=== PATIENT | male | born 1975 | race Caucasian/White ===

== ENCOUNTER 2016-09-19 13:21 | Inpatient (IN) | payer SELFPAY ==
[2016-09-19 14:02] VITALS: BMI 23.6
[2016-09-19 14:23] LABS: AUTOMATED BASOPHIL 0.5 % (0-2); AUTOMATED EOSINOPHIL 0.4 % (0-5); AUTOMATED LYMPH 9.3 % (17-44); AUTOMATED MONOCYTE 7.9 % (3-10); AUTOMATED NEUTROPHIL 81.9 % (45-76)
[2016-09-19 14:30] LABS: LEUKOCYTES/URINE NEG (NEGATIVE); NITRITE/URINE NEG (NEGATIVE); URINE OCCULT BLOOD NEG (NEG/TRACE)
[2016-09-19 14:32] LABS: RBC/URINE 0-2 (0-2); WBC/URINE 0-2 (0-2)
[2016-09-19] MEDS ORDERED: HYDROmorphone 1 MG INJECTION IV ONE (14:33)
[2016-09-19] MEDS ORDERED: ONDANSETRON HCL 4 MG/2 ML VIAL IV ONE (14:33)
[2016-09-19 14:46] LABS: BLOOD UREA NITROGEN 13 MG/DL (9-20); CALCIUM 9.2 MG/DL (8.4-10.2); CALCULATED OSMOLALITY 276 MOs/Kg (270-290); CHLORIDE 94 mEq/L (98-107); GLUCOSE 391 MG/DL (70-99); SODIUM LEVEL 135 mEq/L (137-146)
[2016-09-19] MEDS ORDERED: NS 1,000 ML IV ONE (14:46)
[2016-09-19 14:47] LABS: ABG Draw Site LRA; ALLEN'S TEST PASS; BEb -1.3 (+/- 2); TCO2 23.8 MMOL/L (23-27)
[2016-09-19] MEDS ORDERED: Pharmacy Review for Metformin - IV Contrast Given SCH (15:00)
--- NOTE | 2016-09-19 15:10 | EDPRACDOC ---
- General Information Information Source: Patient Mode Of Arrival: Car - History of Present Illness Onset: THIS AM Pain Location: Reports: RUQ Pain Context: Reports: Spontaneous Pain Severity: Severe Pain Quality: Reports: Sharp, Stabbing Pain Radiation: Reports: No Radiation Modifying Factors: improves with: Nothing Associated Signs & Symptoms: Reports: Nausea <Medina Mcwilliams - Last Filed: 09/19/16 17:09> <Lashae Leung - Last Filed: 09/19/16 18:39> - General Information Chief Complaint: Abdominal Pain Stated Complaint: ABDOMINAL PAIN Time Seen by Provider: 09/19/16 14:21 Home Medications: Home Medications No Home Medications 09/19/16 Allergies/Adverse Reactions: Allergies Allergy/AdvReac Type Severity Reaction Status Date / Time No Known Allergies Allergy Verified 09/19/16 14:03 - History of Present Illness HPI: PT PRESENTS TODAY WITH SEVERE RUQ PAIN THAT BEGAN THIS MORNING. PT IS UNCONTROLLED DIABETIC AND HAS BEEN OUT OF HIS MEDICATIONS FOR 5 MONTHS D/T FINANCES. USUALLY TAKES INSULIN/METFORMIN. PT STATES ASSOCIATED SEVERE NAUSEA , WITH CP AND SHOB. DENIES FEVER, COUGH, VOMITING/DIARRHEA, DYSURIA. PT IN APPARENT DISCOMFORT. (Medina Mcwilliams) ED Past Medical History - History Reviewed Yes Nurses notes reviewed and agree except as marked - Patient Medical History Psychological History: Denies: Depression - Family Medical History Reports: Diabetes (Mother) - Social Medical History Smoking Status: Never smoker <Medina Mcwilliams - Last Filed: 09/19/16 17:09> EDM Review of Systems - Review of Systems ROS Negative Except as Marked: Yes All systems reviewed and were negative except as marked Constitutional: No Symptoms Reported Respiratory: Shortness of Breath Cardiovascular: Chest Pain Gastrointestinal: Nausea, Pain Genitourinary: No Symptoms Reported Neurological: No Symptoms Reported Musculoskeletal: No Symptoms Reported Integumentary: No Symptoms Reported <Medina Mcwilliams - Last Filed: 09/19/16 17:09> - Physical Exam Constitutional: Alert, Distress Oriented to: Time, Person, Place - HEENT Head: Normal Eye Exam: Normal Neck: Normal, Denies Pain, Midline - Respiratory/Cardiovascular Respiratory: Normal - CTA Cardiovascular: Normal - GI Auscultation: Increased Palpation: Normal Tenderness: Severe, RUQ Ramirez's Sign: Positive - Musculoskeletal Back: Normal Extremities: Normal - Integumentary Skin: Warm, Clammy Lymphatics: Normal - Neurologic Cerebellar: Normal Mood Description: Normal Thought: Coherent Perception: Normal <PoppyMedina Perez - Last Filed: 09/19/16 17:09> - Re-evaluation Re-evaluation 1 Re-evaluation Time: 16:02 - Results 09/19/16 14:09 09/19/16 14:09 - EKG EKG #1 EKG Time: 15:26 -: Yes EKG interpreted by me Rate: bpm: 61 [place]: Normal Rhythm: NSR Block: None Hypertrophy: None ST: Normal <PoppyMedina Perez - Last Filed: 09/19/16 17:09> - Results 09/19/16 14:09 09/19/16 14:09 <Lashae Leung - Last Filed: 09/19/16 18:39> - Re-evaluation Re-evaluation 1 PT STATES HE IS FEELING BETTER. PT DOES ADMIT TO DRINKING ALCOHOL HEAVILY. ( Medina Mcwilliams) - Results WBC 7.8 xk/uL (3.8-10.8) 09/19/16 14:09 RBC 4.39 xM/uL (4.70-6.10) L 09/19/16 14:09 Hgb 14.1 g/dL (14.0-18.0) 09/19/16 14:09 Hct 40.8 % (42-52) L 09/19/16 14:09 MCV 93 fL (80-94) 09/19/16 14:09 MCH 32.2 pg (27-32) H 09/19/16 14:09 MCHC 34.5 g/dl (33-36) 09/19/16 14:09 RDW 13.1 % (11.5-14.5) 09/19/16 14:09 Plt Count 176 xk/uL (130-400) 09/19/16 14:09 MPV 7.0 fL (7.4-10.4) L 09/19/16 14:09 Neut % (Auto) 81.9 % (45-76) H 09/19/16 14:09 Lymph % (Auto) 9.3 % (17-44) L 09/19/16 14:09 [place] % (Auto) 7.9 % (3-10) 09/19/16 14:09 Eos % (Auto) 0.4 % (0-5) 09/19/16 14:09 Baso % (Auto) 0.5 % (0-2) 09/19/16 14:09 Absolute Neuts (auto) 6.32 xk/uL (1.7-8.2) 09/19/16 14:09 Absolute Lymphs (auto) 0.70 xk/uL (0.65-4.75) 09/19/16 14:09 Puncture Site Lra 09/19/16 14:45 pH 7.420 pH UNITS (7.35-7.45) 09/19/16 14:45 pCO2 35.0 mmHg (35-45) 09/19/16 14:45 pO2 87.0 mmHg (80-100) 09/19/16 14:45 HCO3 22.7 MMOL/L (22-26) 09/19/16 14:45 Total CO2 23.8 MMOL/L (23-27) 09/19/16 14:45 Base Excess -1.3 (+/- 2) 09/19/16 14:45 FiO2 % 21 09/19/16 14:45 Specimen Drawn By Dared 09/19/16 14:45 Sodium 135 mEq/L (137-146) L 09/19/16 14:09 Potassium 4.0 mEq/L (3.5-5.1) 09/19/16 14:09 Chloride 94 mEq/L (98-107) L 09/19/16 14:09 Carbon Dioxide 23 mMOL/L (22-33) 09/19/16 14:09 Anion Gap 22 mEq/L (8-16) H 09/19/16 14:09 BUN 13 MG/DL (9-20) 09/19/16 14:09 Creatinine 0.60 MG/DL (0.66-1.25) L 09/19/16 14:09 Estimated GFR (MDRD) > 60 mL/min (>=60) 09/19/16 14:09 Glucose 391 MG/DL (70-99) H 09/19/16 14:09 POC Capillary Glucose 385 MG/DL (70-99) H 09/19/16 14:09 Calculated Osmolality 276 MOs/Kg (270-290) 09/19/16 14:09 Calcium 9.2 MG/DL (8.4-10.2) 09/19/16 14:09 Total Bilirubin 0.7 MG/DL (0.2-1.3) 09/19/16 14:09 AST 27 IU/L (17-59) 09/19/16 14:09 ALT 30 IU/L (21-72) 09/19/16 14:09 Alkaline Phosphatase 231 IU/L (38-126) H 09/19/16 14:09 Lactate Dehydrogenase 468 IU/L (313-618) 09/19/16 14:09 Troponin I < 0.01 ng/mL (<.04) 09/19/16 14:09 Total Protein 8.0 G/DL (6.3-8.2) 09/19/16 14:09 Albumin 4.7 G/DL (3.5-5.0) 09/19/16 14:09 Lipase 87996 U/L (23-300) H 09/19/16 14:09 Urine Color Pale yell0w 09/19/16 14:09 Urine Clarity Clear 09/19/16 14:09 Urine pH 6.0 (5.0-8.0) 09/19/16 14:09 Ur Specific [place] 1.005 09/19/16 14:09 Urine Protein Neg (NEG/TRACE) 09/19/16 14:09 Urine Glucose (UA) 3+ (NEGATIVE) 09/19/16 14:09 Urine Ketones 1+ (NEGATIVE) H 09/19/16 14:09 Urine Occult Blood Neg (NEG/TRACE) 09/19/16 14:09 Urine Nitrite Neg (NEGATIVE) 09/19/16 14:09 Urine Bilirubin Neg (NEGATIVE) 09/19/16 14:09 Urine Urobilinogen 0.2 MG/DL (0-1) 09/19/16 14:09 Ur Leukocyte Esterase Neg (NEGATIVE) 09/19/16 14:09 Urine RBC 0-2 (0-2) 09/19/16 14:09 Urine WBC 0-2 (0-2) 09/19/16 14:09 Urine Bacteria Few (NEG/FEW) 09/19/16 14:09 Urine Mucus Occ (NEG/OCC) 09/19/16 14:09 Lab Results 09/19/16 09/19/16 09/19/16 14:45 14:09 14:09 WBC RBC Hgb Hct MCV MCH MCHC RDW Plt Count MPV Neut % (Auto) Lymph % (Auto) [place] % (Auto) Eos % (Auto) Baso % (Auto) Absolute Neuts (auto) Absolute Lymphs (auto) Puncture Site Lra pH 7.420 pCO2 35.0 pO2 87.0 HCO3 22.7 Total CO2 23.8 Base Excess -1.3 FiO2 % 21 Specimen Drawn By Dared Sodium Potassium Chloride Carbon Dioxide Anion Gap BUN Creatinine Estimated GFR (MDRD) Glucose POC Capillary Glucose Calculated Osmolality Calcium Total Bilirubin AST ALT Alkaline Phosphatase Lactate Dehydrogenase 468 Troponin I < 0.01 Total Protein Albumin Lipase Urine Color Urine Clarity Urine pH Ur Specific [place] Urine Protein Urine Glucose (UA) Urine Ketones Urine Occult Blood Urine Nitrite Urine Bilirubin Urine Urobilinogen Ur Leukocyte Esterase Urine RBC Urine WBC Urine Bacteria Urine Mucus 09/19/16 09/19/16 09/19/16 14:09 14:09 14:09 WBC RBC Hgb Hct MCV MCH MCHC RDW Plt Count MPV Neut % (Auto) Lymph % (Auto) [place] % (Auto) Eos % (Auto) Baso % (Auto) Absolute Neuts (auto) Absolute Lymphs (auto) Puncture Site pH pCO2 pO2 HCO3 Total CO2 Base Excess FiO2 % Specimen Drawn By Sodium Potassium Chloride Carbon Dioxide Anion Gap BUN Creatinine Estimated GFR (MDRD) Glucose POC Capillary Glucose 385 H Calculated Osmolality Calcium Total Bilirubin AST ALT Alkaline Phosphatase Lactate Dehydrogenase Troponin I Total Protein Albumin Lipase 29041 H Urine Color Pale yell0w Urine Clarity Clear Urine pH 6.0 Ur Specific [place] 1.005 Urine Protein Neg Urine Glucose (UA) 3+ Urine Ketones 1+ H Urine Occult Blood Neg Urine Nitrite Neg Urine Bilirubin Neg Urine Urobilinogen 0.2 Ur Leukocyte Esterase Neg Urine RBC 0-2 Urine WBC 0-2 Urine Bacteria Few Urine Mucus Occ 09/19/16 09/19/16 14:09 14:09 WBC 7.8 RBC 4.39 L Hgb 14.1 Hct 40.8 L MCV 93 MCH 32.2 H MCHC 34.5 RDW 13.1 Plt Count 176 MPV 7.0 L Neut % (Auto) 81.9 H Lymph % (Auto) 9.3 L [place] % (Auto) 7.9 Eos % (Auto) 0.4 Baso % (Auto) 0.5 Absolute Neuts (auto) 6.32 Absolute Lymphs (auto) 0.70 Puncture Site pH pCO2 pO2 HCO3 Total CO2 Base Excess FiO2 % Specimen Drawn By Sodium 135 L Potassium 4.0 Chloride 94 L Carbon Dioxide 23 Anion Gap 22 H BUN 13 Creatinine 0.60 L Estimated GFR (MDRD) > 60 Glucose 391 H POC Capillary Glucose Calculated Osmolality 276 Calcium 9.2 Total Bilirubin 0.7 AST 27 ALT 30 Alkaline Phosphatase 231 H Lactate Dehydrogenase Troponin I Total Protein 8.0 Albumin 4.7 Lipase Urine Color Urine Clarity Urine pH Ur Specific [place] Urine Protein Urine Glucose (UA) Urine Ketones Urine Occult Blood Urine Nitrite Urine Bilirubin Urine Urobilinogen Ur Leukocyte Esterase Urine RBC Urine WBC Urine Bacteria Urine Mucus (Medina Mcwilliams) (Lashae Leung) - Departure Disposition: Admit IP To This Hospital Decision to Admit Time: 16:52 Decision to admit date: 09/19/16 Decision to admit: from ED <Medina Mcwilliams - Last Filed: 09/19/16 17:09> - Departure Yes I personally saw and evaluated the patient. Decision to Admit Time: 18:39 Decision to admit date: 09/19/16 Decision to admit: from ED - Physician Consulted Hospitalist Time Called: 18:38 Provider Called: Manolo Manzo Time Sock Liner Returned Call: 18:39 <Lashae Leung - Last Filed: 09/19/16 18:39> - Departure Condition: Stable Final Diagnosis: Alcohol abuse Pancreatitis Qualifiers: Chronicity: acute Pancreatitis type: alcohol induced Acute pancreatitis complication: no infection or necrosis Qualified Code(s): K85.20 - Alcohol induced acute pancreatitis without necrosis or infection Uncontrolled diabetes mellitus Qualifiers: Diabetes mellitus type: type 2 Diabetes mellitus complication status: with hyperglycemia Referrals: None,No Provider [Primary Care Provider] - One Week
--- NOTE | 2016-09-19 15:20 | DIRPT ---
CLINICAL DATA: Chest pain. EXAM: PORTABLE CHEST 1 VIEW COMPARISON: 09/04/2014 FINDINGS: Cardiomediastinal silhouette is normal. Mediastinal contours appear intact. There is no evidence of focal airspace consolidation, pleural effusion or pneumothorax. Osseous structures are without acute abnormality. Soft tissues are grossly normal. IMPRESSION: No active disease. Electronically Signed By: Nhan Shelley M.D. On: 09/19/2016 15:17
--- NOTE | 2016-09-19 15:40 | DIRPT ---
CLINICAL DATA: Right upper quadrant pain for 1 day EXAM: CT ABDOMEN AND PELVIS WITH CONTRAST TECHNIQUE: Multidetector CT imaging of the abdomen and pelvis was performed using the standard protocol following bolus administration of intravenous contrast. CONTRAST: 100 mL Isovue 370 COMPARISON: The lung bases are free of acute infiltrate or sizable effusion. The liver, gallbladder, spleen, adrenal glands and kidneys are within normal limits with the exception of a tiny hypodensity within the left lobe of the liver likely representing a cyst. The pancreas demonstrates a normal enhancement pattern without evidence of necrosis. There is however significant inflammatory change surrounding the pancreas and extending inferiorly along the inferior vena cava. These changes are most consistent with pancreatitis and correlation laboratory values is recommended. Aortoiliac calcifications are noted. The appendix is within normal limits. The bladder is distended. No filling defects are seen. No pelvic mass lesion or free pelvic fluid is noted. The osseous structures show no acute abnormality. FINDINGS: Diffuse peripancreatic fluid most consistent with pancreatitis. Correlation with laboratory values is recommended. Electronically Signed By: Dmitry Watkins M.D. On: 09/19/2016 15:37
--- NOTE | 2016-09-19 18:47 | HISTPHYS ---
- Chief Complaint pain - History of Present Illness PRIMARY CARE PROVIDER: RASHIDA HPI: The patient is a 41 yo man with uncontrolled DM who presents with abdominal pain. Onset: last night. Duration: intermittent. Location: entire upper abdomen. Radiation: to back and chest Character: 04/09. Pulling sensation. Alleviated by: Nothing. Exacerbated by: Moving. Associated Symptoms: Nausea. No vomiting but feels like he will. No diarrhea, constipation, or bloody stool. Mild chills but no fever. Occasional shortness of breath. No cough or wheezing. Headaches. Chronic decrease in sensation in his feet. Treatments: none at home except usual medications. Has restarted his Victoza and an insulin that is in a yellow case. - Medical History GI/ History: Reports: [facility] GI Yes/No Other Systemic History: Reports: Diabetes (Type 2, on insulin) Psychological History: Denies: Depression OTHER HISTORY: Visual changes 1 year ago but improved. Has an area on his scrotum (right) and inguinal canal that has had intermittent pain since a procedure that was done about 7 years ago at [facility]. States he feels like there is a 1-2 cm wire in the area. It drains fluid sometimes. Area has 2 lesions near it that are unchanged. - Surgical History Reports: Other (Procedure in scrotal area on right; patient still has lesion there and drai) - Medictions/Allergies Allergies No Known Allergies Allergy (Verified 09/19/16 14:03) Current Medication List: Reviewed Home Medications No Home Medications 09/19/16 - Family History Reports: Diabetes (Mother). Denies: Cardiac Disorders - Social History Smoking Status: Never smoker Social History: Reports: Alcohol Use. Denies: Substance Use Disorder Patient drinks 4-5 large 25 oz cans of beer per day. Started a few years ago. - Review of Systems GENERAL: Mild chills but no fever. Positive for fatigue/malaise. HEENT: No nasal discharge or bleeding. No throat pain or swelling. No eye pain or eye redness. RESPIRATORY: Occasional shortness of breath. No cough or wheezing. CARDIOVASCULAR: No palpitations. Chest pain when he gets the epigastric pain. GI: Abdominal pain. Nausea. No vomiting but feels like he will. No diarrhea, constipation, or bloody stool. NEUROLOGICAL: No headache or focal weakness. INTEGUMENT: no rashes, itching, or lesions. LYMPHATIC SYSTEM: no lymph node swelling or pain. MUSCULOSKELETAL: no new pain or joint swelling. GENITOURINARY: No dysuria or hematuria. Has an area on his scrotum (right) and inguinal canal that has had intermittent pain since a procedure that was done about 7 years ago at [facility]. States he feels like there is a 1-2 cm wire in the area. It drains fluid sometimes. Area has 2 lesions near it that are unchanged. ENDOCRINE: No polyuria or polydipsia. HEME: No chronic anemia, bleeding, or easy bruising. - Physical Exam Vital Signs: Initial Vitals Temperature 98.4 F 09/19/16 13:59 Pulse Rate 79 09/19/16 13:59 Respiratory Rate 18 09/19/16 13:59 Blood Pressure 134/90 09/19/16 13:59 Pulse Oxygen Saturation 98 09/19/16 13:59 Vital Signs - 24 hr 09/19/16 09/19/16 09/19/16 13:59 14:24 15:53 Temperature 98.4 F Pulse Rate 79 69 63 Respiratory 18 18 18 Rate Blood Pressure 134/90 142/91 124/80 Pulse Oxygen 98 100 99 Saturation 09/19/16 17:08 Temperature Pulse Rate 65 Respiratory 16 Rate Blood Pressure 110/74 Pulse Oxygen 97 Saturation Weight: 70.4 kg Height: 5 feet 8 inches BMI: 23.6 - Other Exam Other Exam Findings: GENERAL: Ill-appearing, well nourished, in acute distress. HEENT: Normocephalic, atraumatic; pupils equal and round. Nares patent, without discharge or bleeding. No oropharyngeal lesions or erythema. Mucous membranes are dry. NECK: is supple, no masses, trachea midline. RESPIRATORY: Clear to auscultation bilaterally. Chest wall movements are symmetric. No use of accessory muscles to breathe. No wheezing, rales, rhonchi. CARDIOVASCULAR: Normal S1, S2. No murmurs, rubs, or gallops. PMI non-displaced. Carotids: no carotid bruits. No bradycardia or tachycardia. DP pulses 2+ bilaterally. GI: soft, non-distended, normal active bowel sounds. No hepatosplenomegaly. Severe tenderness in epigastric and right upper quadrant areas. Moderate tenderness in lower abdomen. INTEGUMENT: Clean, dry, and intact. No rashes. : No rashes. Lesions on right scrotum: 2 superficial skin lesions approximately 0.5 cm diameter, non-tender. A third lesion appears to have a scar with pinpoint opening without exudate, mildly tender. No edema of scrotum. MUSCULOSKELETAL: Moving all extremities. No cyanosis. No clubbing. Edema: none bilaterally. NEUROLOGICAL: Cranial nerves 2-12 grossly intact. Motor 5/5 throughout. Reflexes : 2+ bilaterally. Babinski: toes downgoing bilaterally. Intact Finger to nose. Sensory grossly intact to light touch except decreased sensation over toes 1-3 on each foot and the MTP areas under each toe. Intact rapid alternating movements bilaterally. No pronator drift. PSYCHIATRIC: Fully oriented. Normal and appropriate affect. LYMPHATIC: No cervical lymphadenopathy. No supraclavicular lymphadenopathy. - Lab Results Laboratory Results - last 24 hr 09/19/16 09/19/16 09/19/16 14:09 14:09 14:09 WBC 7.8 RBC 4.39 L Hgb 14.1 Hct 40.8 L MCV 93 MCH 32.2 H MCHC 34.5 RDW 13.1 Plt Count 176 MPV 7.0 L Neut % (Auto) 81.9 H Lymph % (Auto) 9.3 L [place] % (Auto) 7.9 Eos % (Auto) 0.4 Baso % (Auto) 0.5 Absolute Neuts (auto) 6.32 Absolute Lymphs (auto) 0.70 Puncture Site pH pCO2 pO2 HCO3 Total CO2 Base Excess FiO2 % Specimen Drawn By Sodium 135 L Potassium 4.0 Chloride 94 L Carbon Dioxide 23 Anion Gap 22 H BUN 13 Creatinine 0.60 L Estimated GFR (MDRD) > 60 Glucose 391 H POC Capillary Glucose 385 H Calculated Osmolality 276 Calcium 9.2 Total Bilirubin 0.7 AST 27 ALT 30 Alkaline Phosphatase 231 H Lactate Dehydrogenase Troponin I Total Protein 8.0 Albumin 4.7 Lipase Urine Color Urine Clarity Urine pH Ur Specific [place] Urine Protein Urine Glucose (UA) Urine Ketones Urine Occult Blood Urine Nitrite Urine Bilirubin Urine Urobilinogen Ur Leukocyte Esterase Urine RBC Urine WBC Urine Bacteria Urine Mucus 09/19/16 09/19/16 09/19/16 14:09 14:09 14:09 WBC RBC Hgb Hct MCV MCH MCHC RDW Plt Count MPV Neut % (Auto) Lymph % (Auto) [place] % (Auto) Eos % (Auto) Baso % (Auto) Absolute Neuts (auto) Absolute Lymphs (auto) Puncture Site pH pCO2 pO2 HCO3 Total CO2 Base Excess FiO2 % Specimen Drawn By Sodium Potassium Chloride Carbon Dioxide Anion Gap BUN Creatinine Estimated GFR (MDRD) Glucose POC Capillary Glucose Calculated Osmolality Calcium Total Bilirubin AST ALT Alkaline Phosphatase Lactate Dehydrogenase Troponin I < 0.01 Total Protein Albumin Lipase 71677 H Urine Color Pale yell0w Urine Clarity Clear Urine pH 6.0 Ur Specific [place] 1.005 Urine Protein Neg Urine Glucose (UA) 3+ Urine Ketones 1+ H Urine Occult Blood Neg Urine Nitrite Neg Urine Bilirubin Neg Urine Urobilinogen 0.2 Ur Leukocyte Esterase Neg Urine RBC 0-2 Urine WBC 0-2 Urine Bacteria Few Urine Mucus Occ 09/19/16 09/19/16 14:09 14:45 WBC RBC Hgb Hct MCV MCH MCHC RDW Plt Count MPV Neut % (Auto) Lymph % (Auto) [place] % (Auto) Eos % (Auto) Baso % (Auto) Absolute Neuts (auto) Absolute Lymphs (auto) Puncture Site Lra pH 7.420 pCO2 35.0 pO2 87.0 HCO3 22.7 Total CO2 23.8 Base Excess -1.3 FiO2 % 21 Specimen Drawn By Dared Sodium Potassium Chloride Carbon Dioxide Anion Gap BUN Creatinine Estimated GFR (MDRD) Glucose POC Capillary Glucose Calculated Osmolality Calcium Total Bilirubin AST ALT Alkaline Phosphatase Lactate Dehydrogenase 468 Troponin I Total Protein Albumin Lipase Urine Color Urine Clarity Urine pH Ur Specific [place] Urine Protein Urine Glucose (UA) Urine Ketones Urine Occult Blood Urine Nitrite Urine Bilirubin Urine Urobilinogen Ur Leukocyte Esterase Urine RBC Urine WBC Urine Bacteria Urine Mucus - Diagnostic Findings EK beats per minute. Normal sinus rhythm. Reviewed EKG personally. Chest x-ray, viewed personally: EXAM: PORTABLE CHEST 1 VIEW COMPARISON: 09/04/2014 FINDINGS: Cardiomediastinal silhouette is normal. Mediastinal contours appear intact. There is no evidence of focal airspace consolidation, pleural effusion or pneumothorax. Osseous structures are without acute abnormality. Soft tissues are grossly normal. IMPRESSION: No active disease. CT abdomen and pelvis: EXAM: CT ABDOMEN AND PELVIS WITH CONTRAST TECHNIQUE: Multidetector CT imaging of the abdomen and pelvis was performed using the standard protocol following bolus administration of intravenous contrast. CONTRAST: 100 mL Isovue 370 COMPARISON: The lung bases are free of acute infiltrate or sizable effusion. The liver, gallbladder, spleen, adrenal glands and kidneys are within normal limits with the exception of a tiny hypodensity within the left lobe of the liver likely representing a cyst. The pancreas demonstrates a normal enhancement pattern without evidence of necrosis. There is however significant inflammatory change surrounding the pancreas and extending inferiorly along the inferior vena cava. These changes are most consistent with pancreatitis and correlation laboratory values is recommended. Aortoiliac calcifications are noted. The appendix is within normal limits. The bladder is distended. No filling defects are seen. No pelvic mass lesion or free pelvic fluid is noted. The osseous structures show no acute abnormality. FINDINGS: Diffuse peripancreatic fluid most consistent with pancreatitis. Correlation with laboratory values is recommended. - Assessment (1) Acute pancreatitis K85.90 - ACUTE PANCREATITIS WITHOUT NECROSIS OR INFECTION, UNSP Acute Present on Admission: Yes Qualifiers: Pancreatitis type: alcohol induced Acute pancreatitis complication: A Pancreatitis due to alcoholism. Plan: Admit patient. IV Dilaudid for pain control. NPO except ice chips. Advance diet slowly when patient is requiring less pain medication. Counseled patient to stop drinking alcohol. (2) Type 2 diabetes mellitus with hyperglycemia E11.65 - TYPE 2 DIABETES MELLITUS WITH HYPERGLYCEMIA Acute Present on Admission: Yes Qualifiers: Diabetes mellitus corpsman insulin use: D Patient reports he has been taking Victoza intermittently and an insulin but we do not have the medications or doses on admission. Plan: Check fingerstick blood sugars q ac and hs. Sliding scale insulin. Ordered A1c and urine microalbumin. Counseled patient that he needs to get better control of his diabetes and needs to go to his primary care doctor for regular follow-up visits. Provided extensive teaching regarding potential sequelae of uncontrolled diabetes, including heart disease, peripheral neuropathy, kidney disease, poor wound healing, an increased risk for amputations. (3) Epigastric abdominal pain R10.13 - EPIGASTRIC PAIN Acute Present on Admission: Yes Actually has pain throughout the entire upper abdomen. Most likely due to pancreatitis. Plan: IV Dilaudid p.r.n.. (4) Alcohol withdrawal syndrome with complication F10.239 - ALCOHOL DEPENDENCE WITH WITHDRAWAL, UNSPECIFIED Acute Present on Admission: Yes Qualifiers: Complication of substance-induced condition: with unspecified complication Qualified Code(s): F10.239 - Alcohol dependence with withdrawal, unspecified Plan: Detox protocol. Check blood alcohol level. Start patient on prn Ativan for breakthrough symptoms. Magnesium, phosphorus, other labs ordered. Give IV thiamine/folate/MVI now, then eventually start patient on PO thiamine/ MVI. Nurse to monitor patient closely and check withdrawal symptom scores. Patient advised to stop drinking but to do so under medical supervision because of DT's risk. Patient advised to take thiamine and multivitamin daily after discharge. (5) Scrotal lesion N50.9 - DISORDER OF MALE GENITAL ORGANS, UNSPECIFIED Chronic Present on Admission: Yes Plan: [facility] Recommended that patient follow up with primary care for further evaluation and treatment. Case Care Discussed with: Patient, Nursing Staff Total Time: 70 min
[2016-09-19] MEDS ORDERED: SIMETHICONE 80 MG TAB PO PRN (19:00)
[2016-09-19] MEDS ORDERED: PROMETHAZINE 25 MG/ML VIAL IV PRN (19:00)
[2016-09-19] MEDS ORDERED: ACETAMINOPHEN 325 MG SUPP PR PRN (19:00)
[2016-09-19] MEDS ORDERED: GLUCAGON 1 MG VIAL SQ PRN (19:00)
[2016-09-19] MEDS ORDERED: ONDANSETRON HCL 4 MG/2 ML VIAL IV PRN (19:00)
[2016-09-19] MEDS ORDERED: Docusate Sodium 100 MG CAP PO PRN (19:00)
[2016-09-19] MEDS ORDERED: GUAIFEN 100 MG-DEXTROMETH 10 MG PER 5 ML PO PRN (19:00)
[2016-09-19] MEDS ORDERED: BISACODYL 5 MG TAB PO PRN (19:00)
[2016-09-19] MEDS ORDERED: TEMAZEPAM 15 MG CAP PO PRN (19:00)
[2016-09-19] MEDS ORDERED: BENZONATATE 100 MG PERLES PO PRN (19:00)
[2016-09-19] MEDS ORDERED: ACETAMINOPHEN 325 MG/TAB TABLET PO PRN (19:00)
[2016-09-19] MEDS ORDERED: GLUCOSE (ORAL GEL) 15 GM TUBE PO PRN (19:00)
[2016-09-19] MEDS ORDERED: SENNA CONCENTRATE TAB PO PRN (19:00)
[2016-09-19] MEDS ORDERED: DEXTROSE 25 GM/50 ML PFS IV PRN (19:00)
[2016-09-19] MEDS ORDERED: LORAZEPAM 2 MG/ML VIAL IV PRN ×3 (19:05)
[2016-09-19] MEDS ORDERED: LORAZEPAM 1 MG TAB PO PRN ×3 (19:05)
[2016-09-19 19:44] LABS: ETOH-MGDL < 10 mg/dL
[2016-09-19] MEDS: FOLIC ACID 1 MG, THIAMINE 100 MG, VITAMINS, MULTIPLE 10 ML in NS 1,000 ML IV SCH ×4 (20:00)
[2016-09-19] MEDS ORDERED: Alcohol Withdrawal Scale Orders XX SCH (20:00)
[2016-09-19] MEDS: ENOXAPARIN 40 MG/0.4 ML PFS SQ SCH (20:10)
[2016-09-19] MEDS: LR 1,000 ML IV ONE (20:12)
[2016-09-19] MEDS: HYDROmorphone 1 MG INJECTION IV PRN (20:44)
[2016-09-19] MEDS: REGULAR INSULIN 100 UNITS/ML - 3 ML VIAL SQ SCH (21:03)
[2016-09-19 21:20] LABS: ALL NEG? YES; MDMA* NEG (NEGATIVE); METHAMPHETAMINES NEG (NEGATIVE); OXYCODONE NEG (NEGATIVE)
[2016-09-19] MEDS ORDERED: Vaccine Screening Complete SCH (22:00)
[2016-09-20] MEDS: LR 1,000 ML IV ONE (04:19)
[2016-09-20] MEDS: HYDROmorphone 1 MG INJECTION IV PRN ×3 (04:25→17:13)
[2016-09-20] MEDS: REGULAR INSULIN 100 UNITS/ML - 3 ML VIAL SQ SCH ×4 (06:04→20:50)
[2016-09-20 06:57] LABS: MPV 7.4 fL (7.4-10.4)
[2016-09-20 07:19] LABS: BLOOD UREA NITROGEN 9 MG/DL (9-20); CALC CORRECTED 8.9 MG/DL (8.4-10.2); CALCULATED OSMOLALITY 267 MOs/Kg (270-290); CHLORIDE 101 mEq/L (98-107); GLUCOSE 175 MG/DL (70-99); SODIUM LEVEL 137 mEq/L (137-146); TOTAL PROTEIN 5.8 G/DL (6.3-8.2)
[2016-09-20] MEDS ORDERED: FLU VACCINE (Afluria) 0.5 ML DOSE IM ONE (08:00)
[2016-09-20] MEDS ORDERED: PNEUMOCOCCAL 0.5 ML VIAL IM ONE (08:00)
--- NOTE | 2016-09-20 16:44 | GENMEDPROG ---
Chief Complaint: Pancreatitis and [id number] diabetes Subjective Note: Patient states he is feeling slightly better. He has less abdominal pain. He has had no vomiting. He states his last drink was about 2 weeks prior to admission. He states he was taking and orange insulin 30 units 3 times a day but had run out of that. He recently restarted his Victoza. He was originally on both medications together. Current Medication List: Reviewed Currently: Reports: Alcohol Hx, Abdominal Pain. Denies: Cough, Wheezing, KELLER, SOB, Tobacco Use/Hx, Fever/Chills DVT Prophylaxis: Yes - Physical Examination Vital Signs and I&O: Last Vital Signs Temp 98.6 F 09/20/16 14:41 Pulse 55 L 09/20/16 14:41 Resp 20 09/20/16 14:41 BP 98/60 L 09/20/16 14:41 Pulse Ox 99 09/20/16 14:41 Oxygen Pulse Oxygen Saturation 99 O2 Device Room Air Oxygen Flow Rate Fraction of Inspired Oxygen ( FIO2) Intake & Output 09/17/16 09/18/16 09/19/16 09/20/16 23:59 23:59 23:59 23:59 Intake Total 1273 1727 Output Total 500 Balance 773 1727 Patient's weight 68.583 kg 68.748 kg General: Alert, Oriented x3, Cooperative, Mild distress (Abdominal pain) HEENT: Mucous membr. moist/pink Neck: Normal inspection, No Thyromegaly palpable Lymphatics: Normal Respiratory: Normal - CTA Cardiovascular: Regular rate and rhythm. negative: LE Edema GI: Soft, No hepatospenomegaly, Tenderness (Epigastric area) Extremities/Musculoskeletal: Normal pulses. negative: Edema Skin: Warm,Dry and Intact Neurological: Normal speech, Normal tone Psych/Mental Status: Appropriate, Normal Affect, Cooperative Lab/DI/Studies Reviewed: Intake & Output 09/17/16 09/18/16 09/19/16 09/20/16 23:59 23:59 23:59 23:59 Intake Total 1273 1732 Output Total 500 150 Balance 773 1582 Patient's weight 68.583 kg 68.748 kg 09/20/16 06:20 09/20/16 06:20 - Assessment (1) Acute pancreatitis Acute K85.90 - ACUTE PANCREATITIS WITHOUT NECROSIS OR INFECTION, UNSP Qualifiers: Pancreatitis type: alcohol induced Acute pancreatitis complication: A Comment/Plan: Likely due to alcoholism. Will see if we can start a diet tomorrow. . (2) Type 2 diabetes mellitus with hyperglycemia Acute E11.65 - TYPE 2 DIABETES MELLITUS WITH HYPERGLYCEMIA Qualifiers: Diabetes mellitus long-term insulin use: D Comment/Plan: Unclear what his previous medication regimen was supposed to be. His A1c is 14. Will check his fingersticks. Right now is on sliding scale insulin but likely needs to be on her routine dose. (3) Alcohol withdrawal syndrome with complication Acute F10.239 - ALCOHOL DEPENDENCE WITH WITHDRAWAL, UNSPECIFIED Qualifiers: Complication of substance-induced condition: with unspecified complication Qualified Code(s): F10.239 - Alcohol dependence with withdrawal, unspecified Comment/Plan: Doing well on the detox protocol so far. If he truly has not had alcohol in 2 weeks his withdrawal issues may be negative.. 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 Recommended that patient follow up with primary care for further evaluation and treatment. Case Care Discussed with: Patient Education/Counseling Given To: Patient, Family Member Education/Counseling Given Regarding: Diagnosis, Treatment, Prognosis Total Time: 40 minutes Critical Care: No Couseling Time (>50% in counseling/coordination): Yes Code: 19443 (12+)
[2016-09-20] MEDS: ENOXAPARIN 40 MG/0.4 ML PFS SQ SCH (17:13)
[2016-09-20] MEDS: FOLIC ACID 1 MG, THIAMINE 100 MG, VITAMINS, MULTIPLE 10 ML in NS 1,000 ML IV SCH ×4 (20:50)
[2016-09-21] MEDS: KCl 10 mEq/100 ml Premix (Run) 10 MEQ/100 ML RTU IV SCH ×3 (01:00→04:05)
[2016-09-21] MEDS: REGULAR INSULIN 100 UNITS/ML - 3 ML VIAL SQ SCH ×4 (06:26→21:27)
[2016-09-21 07:25] LABS: MPV 7.4 fL (7.4-10.4)
[2016-09-21 07:45] LABS: BLOOD UREA NITROGEN 7 MG/DL (9-20); CALC CORRECTED 9.2 MG/DL (8.4-10.2); CALCIUM 7.9 MG/DL (8.4-10.2); CALCULATED OSMOLALITY 261 MOs/Kg (270-290); CHLORIDE 102 mEq/L (98-107); GLUCOSE 151 MG/DL (70-99); SODIUM LEVEL 135 mEq/L (137-146); TOTAL PROTEIN 5.5 G/DL (6.3-8.2)
[2016-09-21] MEDS: ENOXAPARIN 40 MG/0.4 ML PFS SQ SCH (18:03)
[2016-09-21] MEDS: 1/2NS 1,000 ML IV SCH (18:14)
[2016-09-21] MEDS: FOLIC ACID 1 MG, THIAMINE 100 MG, VITAMINS, MULTIPLE 10 ML in NS 1,000 ML IV SCH ×4 (19:56)
--- NOTE | 2016-09-21 20:32 | GENMEDPROG ---
Subjective Note: Patient is having much less pain today. He is hungry. He has been NPO. Feels like his pain is less. He has ambulated some. He has some mild lightheadedness but no true dizziness. Current Medication List: Reviewed Currently: Reports: Alcohol Hx, Abdominal Pain (Improved), Ambulating. Denies: Cough, Wheezing, KELLER, SOB, Tobacco Use/Hx, Nausea and Vomiting, Fever/Chills DVT Prophylaxis: Yes - Physical Examination Vital Signs and I&O: Last Vital Signs Temp 97.9 F 09/21/16 17:58 Pulse 55 L 09/21/16 17:58 Resp 20 09/21/16 17:58 BP 102/69 09/21/16 17:58 Pulse Ox 100 09/21/16 17:58 Oxygen Pulse Oxygen Saturation 100 O2 Device Room Air Oxygen Flow Rate Fraction of Inspired Oxygen ( FIO2) Intake & Output 09/18/16 09/19/16 09/20/16 09/21/16 23:59 23:59 23:59 23:59 Intake Total 1273 1732 995 Output Total 500 150 Balance 773 1582 995 Patient's weight 68.583 kg 68.748 kg 68.663 kg General: Alert, Oriented x3, Cooperative, No acute distress HEENT: Mucous membr. moist/pink. negative: Anicteric Sclera Neck: Normal inspection, No Thyromegaly palpable Lymphatics: Normal Respiratory: Normal - CTA Cardiovascular: Regular rate and rhythm. negative: LE Edema GI: Soft, No hepatospenomegaly, Tenderness (Epigastric area, but much less than yesterday) Extremities/Musculoskeletal: Normal pulses. negative: Edema Skin: Warm,Dry and Intact Neurological: Normal speech, Normal tone Psych/Mental Status: Appropriate, Normal Affect, Cooperative - Assessment (1) Acute pancreatitis Acute K85.90 - ACUTE PANCREATITIS WITHOUT NECROSIS OR INFECTION, UNSP Qualifiers: Pancreatitis type: alcohol induced Acute pancreatitis complication: A Comment/Plan: Likely due to alcoholism. Will given some clear liquids this afternoon and see how he tolerates that. He may be able to start a diet tomorrow. He is still on IV Dilaudid. . (2) Type 2 diabetes mellitus with hyperglycemia Acute E11.65 - TYPE 2 DIABETES MELLITUS WITH HYPERGLYCEMIA Qualifiers: Diabetes mellitus fci insulin use: D Comment/Plan: Hemoglobin A1c is 14. He is presently on fingerstick glucose. But he is not taking any oral food at this point. I would not use Victoza since he has had pancreatitis. Once he can eat we can start him on long-acting insulin. (3) Alcohol withdrawal syndrome with complication Acute F10.239 - ALCOHOL DEPENDENCE WITH WITHDRAWAL, UNSPECIFIED Qualifiers: Complication of substance-induced condition: with unspecified complication Qualified Code(s): F10.239 - Alcohol dependence with withdrawal, unspecified Comment/Plan: Doing well on the detox protocol so far. If he truly has not had alcohol in 2 weeks his withdrawal issues may be negative.. 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 Recommended that patient follow up with primary care for further evaluation and treatment. Case Care Discussed with: Patient, Nursing Staff Education/Counseling Given To: Patient Education/Counseling Given Regarding: Diagnosis, Treatment Total Time: 35 minutes Critical Care: No Couseling Time (>50% in counseling/coordination): No Code: 63850 (12+)
[2016-09-22] MEDS: 1/2NS 1,000 ML IV SCH (04:30)
[2016-09-22] MEDS: REGULAR INSULIN 100 UNITS/ML - 3 ML VIAL SQ SCH ×2 (05:12→12:35)
[2016-09-22 07:13] LABS: MPV 7.1 fL (7.4-10.4)
[2016-09-22 07:37] LABS: BLOOD UREA NITROGEN 6 MG/DL (9-20); CALC CORRECTED 9.2 MG/DL (8.4-10.2); CALCULATED OSMOLALITY 264 MOs/Kg (270-290); CHLORIDE 106 mEq/L (98-107); GLUCOSE 138 MG/DL (70-99); SODIUM LEVEL 137 mEq/L (137-146); TOTAL PROTEIN 5.4 G/DL (6.3-8.2)
[2016-09-22 08:48] VITALS: BP 99/67; PULSE 52; TEMP 97.8
--- NOTE | 2016-09-22 10:08 | PCM.DCS92 ---
- Final/Secondary Discharge Diagnosis (1) Acute pancreatitis Acute K85.90 - ACUTE PANCREATITIS WITHOUT NECROSIS OR INFECTION, UNSP Present on Admission: Yes alcohol induced A Comment: This is likely due to alcoholism. He tolerated a clear liquids last night. He tolerated breakfast this morning. He has had very little IV Dilaudid in the last 24 hours. He is ambulating. He will be discharged today. . (2) Type 2 diabetes mellitus with hyperglycemia Acute E11.65 - TYPE 2 DIABETES MELLITUS WITH HYPERGLYCEMIA Present on Admission: Yes with shelter use E11.65 - Type 2 diabetes mellitus with hyperglycemia; Z79.4 - prison (current) use of insulin Comment: Hemoglobin A1c is 14. I have advised him not to use Victoza at this point since he has had pancreatitis. I will send him home with a prescription for short-acting insulin to do a moderate dose sliding scale. He was also given a glucometer as well as supplies. He will follow up the [facility]. I stressed to him that if he quits drinking is diabetes will likely be better controlled. He needs close follow-up to find the best management for his diabetes. (3) Alcohol withdrawal syndrome with complication Acute F10.239 - ALCOHOL DEPENDENCE WITH WITHDRAWAL, UNSPECIFIED Present on Admission: Yes with unspecified complication F10.239 - Alcohol dependence with withdrawal, unspecified Comment: He has done very well on the detox protocol. He has had no signs of alcohol withdrawal. Will send home with prescriptions for thiamine and multiple vitamin and folic acid. Strongly encouraged him to discontinue all alcohol. (4) Hypokalemia Acute E87.6 - HYPOKALEMIA Present on Admission: Yes Comment: Has been replaced orally. Potassium is normal now. 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 Recommended that patient follow up with primary care for further evaluation and treatment. Discharge Disposition: Home Discharge Condition: Improved Cognitive Discharge Status: Unimpaired Fuctional Discharge Status: Independent Forms: Excuse Note Physician Follow up/Referrals: None,No Provider [Family Provider] - [facility] [Provider Group] - Listed Time Home Medications / New Prescriptions: New Folic Acid 0.4 mg PO DAILY #30 tablet Insulin, Regular [Humulin R] See Protocol SQ ACHS #1 vial Oxycodone HCl [Roxicodone] 5 mg PO Q6 #10 tablet Thiamine [Thiamine, Vitamin B-1] 100 mg PO DAILY #30 tab O2 Device: Room Air Additional Instructions: Do not drive while taking pain medication. Diet at Discharge: Diabetic Activity: As Tolerated Discontinue use of:: Alcohol - DC Summary Notes Hospital Course Note:: Discharge summary on patient named GHADA ANGULO admitted to [facility] on 09/19/16 by Manolo Manzo MD. Date of discharge is [2016]. The patient is a 41-year-old male with a history of uncontrolled diabetes and poor medical follow-up. He presented to the emergency department with a several hour history of abdominal pain which he rated as an 8/10. He had no nausea or vomiting but did have a decreased appetite. He is a beer drinker but stated he had not had alcohol in several days prior to admission. He knew his sugars have been running high and he started using some Victoza which she had from previous prescription. He had previously used insulin in that yellow / orange box. He used to 3 times a day but had run out. He had not been checking his blood sugars because he did not have money for the strips. In the emergency department the patient was found to have a lipase of almost 16, 000. He had a CT of his abdomen which showed pancreatitis without any evidence of necrosis. Patient's blood gas was normal and he was not in DKA. He was admitted to a medical bed. He was started on IV Dilaudid for pain control. He has substantial amount of pain in the 1st 24 hours. He was placed NPO except for ice chips. He was placed on moderate dose insulin sliding scale. Patient's pain medication needs decreased after the 1st 24-48 hours. He was started on some clear liquids which she tolerated well. On the morning of discharge she had tolerated a full breakfast without abdominal pain. Lipase on the day of discharge was 2800. He is ambulating in his room. He will be sent home with a small amount of pain medication. He was counseled to not drive with pain medication. He was also extensively counseled on the long-term effects of drinking in the long-term effects of uncontrolled diabetes. His hemoglobin A1c during this admission came back at 14. I would like him to wait several days before he returns to work and he will be given a note for that. He will be given a prescription for a moderate dose insulin sliding scale regimen. He has a prescription for 1 bottle of regular insulin. He has been given a meter and supplies to take home with him. The meter is a [employer] meter as those seem to have the low was rocha supplies. He will follow up as needed in the emergency department for increased abdominal pain. He will follow up with the [facility] in 1 week. Condition on discharge was stable and improved. All questions were answered. 09/22/16 06:49 09/22/16 06:49 Discharge Home Medication List Folic Acid 0.4 mg PO DAILY #30 tablet 09/22/16 [Rx] Insulin, Regular [Humulin R] See Protocol SQ ACHS #1 vial 09/22/16 [Rx] Oxycodone HCl [Roxicodone] 5 mg PO Q6 #10 tablet 09/22/16 [Rx] Thiamine [Thiamine, Vitamin B-1] 100 mg PO DAILY #30 tab 09/22/16 [Rx] New Discharge Medications (Rx) Folic Acid 0.4 mg PO DAILY #30 tablet 09/22/16 [Rx] Insulin, Regular [Humulin R] See Protocol SQ ACHS #1 vial 09/22/16 [Rx] Oxycodone HCl [Roxicodone] 5 mg PO Q6 #10 tablet 09/22/16 [Rx] Thiamine [Thiamine, Vitamin B-1] 100 mg PO DAILY #30 tab 09/22/16 [Rx] Code: 45436 (>30min.) - Physical Exam Vital Signs: Last Vital Signs Temp 97.8 F 09/22/16 08:47 Pulse 52 L 09/22/16 08:47 Resp 20 09/22/16 05:32 BP 99/67 09/22/16 08:47 Pulse Ox 100 09/22/16 08:47 Oxygen Pulse Oxygen Saturation 100 O2 Device Room Air Oxygen Flow Rate Fraction of Inspired Oxygen ( FIO2) Constitutional: Alert, Well appearing Oriented to: Time, Person, Place - HEENT Head: Normal Eye: Normal. negative: Conjunctival Injection Oropharynx: Normal. negative: Membranes Dry Tympanic Membrane: Normal ENT EAC: Normal Nose: No Symptoms Reported - Respiratory/Cardiovascular Respiratory: Normal - CTA Cardiovascular: Bradycardia - GI Auscultation: Normal Palpation: Normal. negative: Enlarged liver, Enlarged spleen Tenderness: Mild (Very mild epigastric tenderness to deep palpation) Ramirez's Sign: Negative Rectal Exam: Deferred - Exam Deferred: Yes - Musculoskeletal Back: Normal. negative: CVA Tenderness Extremities: Normal. negative: Edema - Integumentary Skin: Normal Lymphatics: Normal - Neurologic Memory Impaired: Normal Motor Function: Normal Cerebellar: Normal. negative: Past-Pointing, Tremor Mood Description: Normal Thought: Coherent Perception: Normal
[2016-09-22] MEDS ORDERED: THIAMINE 100 MG TAB PO SCH (12:00)
[2016-09-22] MEDS ORDERED: VITAMINS,PRENATAL TABLET PO SCH (12:00)
== END 2016-09-22 13:53 | disposition home or self-care (01) | DRG 439 ==
LOC: ED 13:21 → MPS3 18:41
PROVIDERS: ADMIT Internal Medicine; ATTEND Family Medicine
DX: K85.20 Alcohol induced acute pancreatitis without necrosis or infection (principal); F10.239 Alcohol dependence with withdrawal, unspecified; E11.65 Type 2 diabetes mellitus with hyperglycemia; N50.9 Disorder of male genital organs, unspecified; E87.6 Hypokalemia; Z23 Encounter for immunization
CPT/HCPCS: 36415; 36600; 71010; 74177; 80053; 80307; 81001; 82043; 82272; 82803; 82962; 83036; 83615; 83690; 83735; 84100; 84484; 85025; 85027; 90471; 90656; 90732; 93005; 96361; 96372; 96374; 96375; 99284; A9153; A9698; J1170; J1650; J2405; J3411; J3480; J3490